=== PATIENT | female | born 1970 | race Caucasian/White ===

== ENCOUNTER 2018-02-12 08:37 | Emergency (ER) | payer SELFPAY, OTHER ==
[2018-02-12] MEDS: KETOROLAC 15 MG INJ IM (12:12)
[2018-02-12] MEDS: morphine 4 MG/ML VIAL IV (13:12)
== END 2018-02-12 13:56 | disposition home or self-care (01) ==
LOC: E/R 08:37
DX: M25.512 Pain in left shoulder (principal); M54.12 Radiculopathy, cervical region; Z87.891 Personal history of nicotine dependence
CPT/HCPCS: 71045; 73030; 93005; 96372; 96374; 99284-25

== ENCOUNTER 2018-08-20 08:32 | Emergency (ER) | payer OTHER ==
[2018-08-20] MEDS: KETOROLAC 30 MG INJ IM (09:22)
== END 2018-08-20 10:12 | disposition home or self-care (01) ==
LOC: FTE 08:32
DX: R06.02 Shortness of breath (principal); F17.210 Nicotine dependence, cigarettes, uncomplicated
CPT/HCPCS: 71045; 81025; 96372; 99284-25

== ENCOUNTER → 2019-08-17 | Emergency (ER) | payer OTHER ==
[~2019-08-17] MED LIST: CEFTRIAXONE 1 GM INJ IM; LIDOCAINE 1% (MDV) 20 ML INJ SC
[2019-08-17 11:40] LABS: ADD MAN DIFF? NO
[2019-08-17 11:46] LABS: WHITE BLOOD COUNT 6.5 10^3/ul (4.8-10.8)
[2019-08-17 11:46] LABS: BASOPHIL # 0.1 10^3/ul (0.0-0.1); BASOPHILS % 1.1 % (0.0-2.0); EOSINOPHILS # 0.3 10^3/ul (0.0-0.5); EOSINOPHILS % 4.9 % (0.0-7.0); HEMATOCRIT 37.2 % (37.0-47.0); HEMOGLOBIN 11.8 g/dl (12.0-16.0); LYMPHOCYTES # 1.9 10^3/ul (0.8-2.9); LYMPHOCYTES % 29.4 % (15.0-51.0); MEAN CORPUSCULAR HEMOGLOBIN 29.2 pg (29.0-33.0); MEAN CORPUSCULAR HGB CONC 31.7 g/dl (32.0-37.0); MEAN CORPUSCULAR VOLUME 92.1 fl (82.0-101.0); MEAN PLATELET VOLUME 10.4 fl (7.4-10.4); MONOCYTE # 0.5 10^3/ul (0.3-0.9); MONOCYTES % 7.9 % (0.0-11.0); NEUTROPHIL # 3.7 10^3/ul (1.6-7.5); NEUTROPHILS % 56.4 % (39.0-77.0); PLATELET COUNT 290 10^3/UL (140-415); RED BLOOD COUNT 4.04 10^6/ul (4.20-5.40); RED CELL DISTRIBUTION WIDTH 15.6 % (11.5-14.5)
[2019-08-17 12:03] LABS: ALANINE AMINOTRANSFERASE 23 IU/L (13-69); ALBUMIN 3.9 g/dl (3.3-4.9); ALBUMIN/GLOBULIN RATIO 1.14; ALKALINE PHOSPHATASE 97 IU/L (42-121); ANION GAP 5 (5-13); ASPARTATE AMINO TRANSFERASE 32 IU/L (15-46); BILIRUBIN,INDIRECT 0.4 mg/dl (0-1.1); BILIRUBIN,TOTAL 0.4 mg/dl (0.2-1.3); BLOOD UREA NITROGEN 10 mg/dl (7-20); CALCIUM 8.7 mg/dl (8.4-10.2); CARBON DIOXIDE 30 mmol/L (21-31); CHLORIDE 106 mmol/L (97-110); CREATININE 0.64 mg/dl (0.44-1.00); Estimated GFR > 60 mL/min (>60); GLUCOSE 91 mg/dl (70-220); POTASSIUM 4.4 mmol/L (3.5-5.1); SODIUM 141 mmol/L (135-144); TOTAL PROTEIN 7.3 g/dl (6.1-8.1)
[2019-08-17] MEDS: IOHEXOL 300MG/ML 150 ML BTL (12:42)
[2019-08-17] MEDS: SOD CHLORIDE 0.9% 100 ML (12:42)
[2019-08-17] MEDS: ACETAMINOPHEN 500 MG TAB PO (13:08)
== END | disposition home or self-care (01) ==
LOC: FTE 10:33
DX: T81.42XA Infection following a procedure, deep incisional surgical site, initial encounter (principal); F17.210 Nicotine dependence, cigarettes, uncomplicated; Y82.9 Unspecified medical devices associated with adverse incidents
CPT/HCPCS: 36415; 74160; 80053; 81025; 85025; 99284-25